=== PATIENT | male | born 1980 | race Caucasian/White ===

== ENCOUNTER 2020-06-16 20:42 | Emergency (ER) | payer SELFPAY ==
[~2020-06-16] VITALS: Ht 177.8 cm; Wt 100.0 kg
[2020-06-16 20:57] VITALS: BP 178/91
[2020-06-16] MEDS ORDERED: UNABLE MC (21:14)
[2020-06-16] MEDS ORDERED: LIDOCAINE/EPI/TETRACAINE TOPICAL GEL 3 ML. TP ONE (22:00)
--- NOTE | 2020-06-16 22:14 | PHYS DOC ---
Past Medical History Past Medical History: Hypertension Additional Past Medical Histor: R calf "strain" Past Surgical History: Other Additional Past Surgical Histo: L shoulder Smoking Status: Current Every Day Smoker Alcohol Use: None General Adult EDM: Chief Complaint: LACERATION/AVULSION HPI: HPI: Patient is a 39 year old male presents for evaluation of wound to his forehead. Prior to arrival a cabinet door fell and hit the patient in the head. Patient denies any loss of consciousness. He denies any headache or neck pain. On exam patient has a 3 cm laceration that is a Z shape in the middle of his forehead between eyebrows. Review of Systems: Review of Systems: Constitutional: Denies fever or chills. [] Eyes: Denies change in visual acuity. [] HENT: Denies nasal congestion or sore throat. [] Respiratory: Denies cough or shortness of breath. [] Cardiovascular: Denies chest pain or edema. [] GI: Denies abdominal pain, nausea, vomiting, bloody stools or diarrhea. [] : Denies dysuria. [] Musculoskeletal: Denies back pain or joint pain. [] Integument: Denies rash. [Positive laceration] Neurologic: Denies headache, focal weakness or sensory changes. [] Endocrine: Denies polyuria or polydipsia. [] Lymphatic: Denies swollen glands. [] Psychiatric: Denies depression or anxiety. [] Heart Score: Risk Factors: Risk Factors: DM, Current or recent (<one month) smoker, HTN, HLP, family history of CAD, obesity. Risk Scores: Score 0 - 3: 2.5% MACE over next 6 weeks - Discharge Home Score 4 - 6: 20.3% MACE over next 6 weeks - Admit for Clinical Observation Score 7 - 10: 72.7% MACE over next 6 weeks - Early Invasive Strategies Current Medications: Current Medications Medications (Trade) Dose Ordered Sig/Anabel Start Time Stop Time Status Last Admin Dose Admin Tetracaine/ Epinephrine/ Lidocaine (Let (Airl-Iputzcf-Myhgf) Gel) 3 ml 1X ONCE 06/16/20 22:00 06/16/20 22:01 DC 06/16/20 21:56 3 ML Allergies: Allergies: Allergies Coded Allergies Type Severity Reaction Last Updated Verified No Known Drug Allergies 06/16/20 No Physical Exam: PE: Constitutional: Well developed, well nourished, no acute distress, non-toxic appearance. [] HENT: Normocephalic, atraumatic, bilateral external ears normal, oropharynx moist, no oral exudates, nose normal. [] Eyes: PERRLA, EOMI, conjunctiva normal, no discharge. [] Neck: Normal range of motion, no tenderness, supple, no stridor. [] Cardiovascular:Heart rate regular rhythm, no murmur [] Lungs & Thorax: Bilateral breath sounds clear to auscultation [] Abdomen: Bowel sounds normal, soft, no tenderness, no masses, no pulsatile masses. [] Skin: Warm, dry, no erythema, no rash. [Laceration 2 cm middle of forehead] Back: No tenderness, no CVA tenderness. [] Extremities: No tenderness, no cyanosis, no clubbing, ROM intact, no edema. [] Neurologic: Alert and oriented X 3, normal motor function, normal sensory function, no focal deficits noted. [] Psychologic: Affect normal, judgement normal, mood normal. [] Current Patient Data: Vital Signs: Vital Signs Date Time Temp Pulse Resp B/P (MAP) Pulse Ox O2 Delivery O2 Flow Rate FiO2 06/16/20 20:57 98.1 99 20 178/91 (120) 97 Room Air 98.1 EKG: EKG: [] Radiology/Procedures: Radiology/Procedures: [] Course & Med Decision Making: Course & Med Decision Making Pertinent Labs and Imaging studies reviewed. (See chart for details) []LET applied for anesthesia 3cm laceration forehead 4 sutures 6.0 nylon simple interrupted Dragon Disclaimer: Max Disclaimer: This electronic medical record was generated, in whole or in part, using a voice recognition dictation system. Departure Departure Impression: Primary Impression: Laceration Additional Impression: Laceration of forehead Disposition: 01 HOME, SELF-CARE Condition: STABLE Patient Instructions: Facial Laceration, Laceration Care, Adult Additional Instructions: Sutures out in 5-7 days. Justicifation of Admission Dx: Justifications for Admission: Justification of Admission Dx: N/A MINGO CARDOZO DO Jun 16, 2020 22:14
== END 2020-06-16 22:38 | disposition home or self-care (01) ==
LOC: ER 20:42
DX: S01.81XA Laceration without foreign body of other part of head, initial encounter (principal); I10 Essential (primary) hypertension; F17.200 Nicotine dependence, unspecified, uncomplicated; Z98.890 Other specified postprocedural states; W18.09XA Striking against other object with subsequent fall, initial encounter; Y93.89 Activity, other specified; Y92.89 Other specified places as the place of occurrence of the external cause; Y99.8 Other external cause status
CPT/HCPCS: 12013; 99282